=== PATIENT | female | born 1985 | race Caucasian/White ===

== ENCOUNTER 2023-06-10 05:33 | Day surgery (SDC) | payer BC, OTHER ==
[2023-06-01 10:28] LABS: BASOPHILS % (AUTO) 0.6 % (0-1); EOSINOPHILS # (AUTO) 0.1 X10'3 (0-0.9); EOSINOPHILS % (AUTO) 0.7 % (0-6); LYMPHOCYTES # (AUTO) 1.9 X10'3 (1.1-4.8); LYMPHOCYTES % (AUTO) 26.5 % (21-51); MEAN CORPUSCULAR HEMOGLOBIN 25.5 PG (27.0-31.0); MEAN CORPUSCULAR VOLUME 79.6 FL (78-98); MEAN PLATELET VOLUME 8.8 FL (7.4-10.4); MONOCYTES # (AUTO) 0.4 X10'3 (0-0.9); MONOCYTES % (AUTO) 5.7 % (2-12); NEUTROPHILS # (AUTO) 4.8 X10'3 (1.8-7.7); NEUTROPHILS % (AUTO) 66.5 % (42-75); PRE OP HEMATOCRIT 37.7 % (35.0-45.0); PRE OP HEMOGLOBIN 12.1 g/dL (12.0-16.0); PRE OP PLATELET COUNT 289 X10'3 (140-440); PRE OP WHITE BLOOD COUNT 7.2 10'3 (4.8-10.8); RED BLOOD COUNT 4.73 X10'6 (4.20-5.60); RED CELL DISTRIBUTION WIDTH 15.2 % (11.5-14.5)
[2023-06-01 10:37] LABS: ALBUMIN/GLOBULIN RATIO 1.3 (1.1-1.5); ALKALINE PHOSPHATASE 61 IU/L (46-116); BLOOD UREA NITROGEN 6 MG/DL (7-18); BUN/CREATININE RATIO 7.2 (10.0-20.0); CALCIUM 9.1 MG/DL (8.5-10.1); CHLORIDE 104 MMOL/L (99-107); CREATININE 0.83 MG/DL (0.40-0.90); PRE OP ALT 17 U/L (30-65); PRE OP ANION GAP 7 (8-16); PRE OP AST 10 U/L (10-37); PRE OP BILIRUB, TOTAL 0.5 MG/DL (0.0-1.0); PRE OP GLUCOSE 102 MG/DL (70-104); PRE OP POTASSIUM 3.5 MMOL/L (3.4-5.1); PRE OP SODIUM 139 MMOL/L (135-145); TOTAL CARBON DIOXIDE 28.3 MMOL/L (24-32); TOTAL PROTEIN 7.2 G/DL (6.4-8.2); eGFR 77 ML/MIN
[2023-06-01 11:01] LABS: HCG SERUM QL NEGATIVE
[2023-06-10] VITALS (8 sets, daily range): BP systolic 92–111; BP diastolic 59–66; PULSE 66–85; RESP 10–16; TEMP 97.2; O2SAT 94–99
[~2023-06-10] VITALS: Ht 175.3 cm; Wt 79.4 kg
[~2023-06-10 05:33] MED LIST: HAIR; LEVO125T68 PO; MVI; SKIN; famotidine 20mg tablet PO ONE; ringers solution, lacted 1,000 ML IV SCH
[2023-06-10 06:20] LABS: PREOP URINE HCG NEGATIVE (NEGATIVE)
--- NOTE | 2023-06-10 07:02 | NUR ---
PURPOSEFUL WEIGHT LOSS BY PT. APPROX 65 POUNDS Addendum: 06/10/23 at 0703 by [place] De Los Santos RN Amended: Links added.
[2023-06-10] MEDS ORDERED: proCHLORperazine 10 MG/2 ml inj IV PRN (07:25)
[2023-06-10] MEDS ORDERED: hydrALAZINE 20mg/ml inj. IV PRN (07:25)
[2023-06-10] MEDS ORDERED: meperidine/PF 25mg/ml syringe IV PRN ×2 (07:25)
[2023-06-10] MEDS ORDERED: morphine 2 MG/ML inj. syringe IV PRN (07:25)
[2023-06-10] MEDS ORDERED: labetalol 20mg/4ml (5mg/ml) syringe IV PRN (07:25)
[2023-06-10] MEDS ORDERED: morphine 4 MG/ML inj SYRINge IV PRN (07:25)
[2023-06-10] MEDS ORDERED: ringers solution, lacted 1,000 ML IV SCH (07:25)
[2023-06-10] MEDS ORDERED: ondansetron/PF 4mg/2ml inj IV PRN (07:25)
[2023-06-10] MEDS ORDERED: acetaminophen 1,000mg/100ml IV 100 ML IV PRN (07:25)
[2023-06-10] MEDS ORDERED: sevoflurane 250ml liquid IH ONE (07:49)
[2023-06-10] MEDS ORDERED: fentaNYL/PF 50MCG/1 ML 2ML syringe ONE (07:53)
[2023-06-10] MEDS ORDERED: midazolam 1 mg/ML 2ml injection ONE (07:54)
[2023-06-10] MEDS ORDERED: dexamethasone sod phosphate 4mg/ml inj. ONE (08:04)
[2023-06-10] MEDS ORDERED: propofol inj 20 ML IV ONE (08:04)
[2023-06-10] MEDS ORDERED: ondansetron/PF 4mg/2ml inj ONE (08:04)
[2023-06-10] MEDS ORDERED: LIDOcaine 2% (20mg/ml) 5ml vial ONE (08:04)
--- NOTE | 2023-06-10 08:37 | NUR ---
Received from OR via , accompanied by Anesthesiologist MELINA and report given by Anesthesiolgist. PT IS EASILY ROUSED. MONTIOR SR. O2 AT 10LPM PER MASK. REPORTS ACHING ABDOMINAL PAIN 01/12 - MEDICATED W/ 12.5 MG DEMEROL. WILL CONTINUE TO MONITOR AND TREAT NEEDED. IV PATENT TO L WRIST - 20 [address]AGE. [address] IN [address] W/ NO DRAINAGE. VSS. Addendum: 06/10/23 at 0859 by Jessenia Linares RN Amended: Links added.
[2023-06-10] MEDS: meperidine/PF 25mg/ml syringe IV PRN ×2 (08:47→09:06)
--- NOTE | 2023-06-10 09:37 | NUR ---
PT AWAKE AND ALERT. PAIN CONTROLLED 10/15 AFTER DEMEROL 12.5 MG x2. TAKING ICE AND WATER W/OUT NAUSEA. VSS. MONITOR SR. SAO2 >97 ON RA. NO DRAINAGE ON PERIPAD. DISCHARGED TO SPOUSE W/ BELONGINGS W/OUT INCIDENT. Addendum: 06/10/23 at 0994 by Jessenia Linares RN Amended: Links added.
== END 2023-06-10 09:37 | disposition home or self-care (01) ==
LOC: PAS 05:33
PROVIDERS: ATTEND Obstetrics & Gynecology
DX: N92.0 Excessive and frequent menstruation with regular cycle (principal); E06.3 Autoimmune thyroiditis; Z88.2 Allergy status to sulfonamides; Z91.040 Latex allergy status; Z79.899 Other long term (current) drug therapy; Z90.49 Acquired absence of other specified parts of digestive tract; Z98.890 Other specified postprocedural states; Z80.49 Family history of malignant neoplasm of other genital organs
CPT/HCPCS: 36415; 58563; 80053; 81025; 82948; 84703; 85025; J1100; J2175; J2250; J2405; J2704; J3010; J3490; J7030; J7120; Z7506; Z7512; A4355; A4618; A4649; A6258